=== PATIENT | male | born 1980 | race Caucasian/White ===

== ENCOUNTER 2019-04-10 14:12 | Observation (INO) ==
[2019-04-10] MEDS ORDERED: SODIUM CHLORIDE 0.9% 1000ML 1,000 ML IV SCH (14:30)
[2019-04-10] MEDS ORDERED: MoRPHine SULFATE 10 MG/ML CARP/VIAL IV STA (14:47)
[2019-04-10] MEDS ORDERED: ONDANSETRON INJ 2 MG/ML 2 ML VIAL IV STA (14:47)
[2019-04-10 14:53] LABS: Eosinophils # (auto) 0.06 K/uL (0-0.5); Eosinophils % (auto) 0.9 %; Hematocrit (blood only) 45.4 % (42-52); Hemoglobin 15.5 g/dL (14.0-18.0); Immature Granulocytes # (auto) 0.02 K/uL (0.00-0.02); Immature Granulocytes % (auto) 0.3 %; Lymphocytes # (auto) 1.27 K/uL (1.2-3.4); Lymphocytes % (auto) 19.8 %; Mean Corpuscular Hgb Conc 34.1 g/dL (32-36); Mean Corpuscular Volume 86.3 fL (80-100); Mean Platelet Volume 10.7 fL (7.4-10.4); Monocytes # (auto) 0.63 K/uL (0.11-0.59); Monocytes % (auto) 9.8 %; Neutrophils # (auto) 4.45 K/uL (1.4-6.5); Neutrophils % (auto) 69.2 %; Platelet Count 250 K/uL (130-400); RDW Coefficient of Variation 12.9 % (11.5-14.5); RDW Standard Deviation 40.9 fL (36.4-46.3); Red Blood Count 5.26 M/uL (4.7-6.1); White Blood Count 6.43 K/uL (4.8-10.8)
--- NOTE | 2019-04-10 15:00 | Emergency Department Note ---
Entered by Peyton Sarabia acting as a scribe for History of Present Illness General Chief complaint: Abdominal Pain Stated complaint: RIGHT ABDOMINAL PAIN Time Seen by Provider: 04/10/19 14:22 Source: patient Limitations: no limitations History of Present Illness Provider complaint: Abdominal Pain Onset (ago): day(s) 1 Location: abdomen Maximum Pain Intensity: 3 Associated symptoms: + denies other symptoms (-congestion, -blood in urine); no cough, no fever/chills and no nausea/vomiting Treatments prior to arrival: other (+ 5mg of Cinapro) The patient is a 38 year old male who presents to the Emergency Room with complaints of abdominal pain that began 1 night prior to arrival. The patient st ates that he had left-sided abdominal pain and nausea the night prior to arrival but states that it went away. The patient states that he woke up this morning with the same left-sided abdominal pain so the patient states that he called his PCP. The patient states that his PCP ordered a CT of the abdomen and states that it showed possible appendicitis. The patient states that the last time he ate w as the night prior to arrival at 1800. The patient denies any fevers, chills, cough, congestion, vomiting, nausea, or blood in his urine. The patient states that his last bowel movement was this morning prior to arrival and states that it was a normal bowel movement. The patient states that he only takes 5mg of Cinapro. Home Medications Home Medications Medication Instructions Recorded Confirmed Type lisinopril 5 mg PO QAM 04/10/19 04/10/19 History multivitamin 1 tab PO QAM 04/10/19 04/10/19 History ranitidine HCl 150 mg PO HS 04/10/19 04/10/19 History Allergies Allergy/AdvReac Type Severity Reaction Status Date / Time No Known Allergies Allergy Verified 04/10/19 15:07 Past Med/Surg History Medical History GERD (gastroesophageal reflux disease) HTN (hypertension) with goal to be determined No significant active problems No significant family history No significant medical problems No significant past medical history No significant past surgical history Surgical History H/O hernia repair reports h/o "double hernia surgery" as infant Social History Preferred Language: Upper Sorbian Communication Ability: Effective Beliefs That Will Affect Care: Oriental Orthodox Oriental Orthodox Beliefs: Buddhist Current Living Situation: Alone Feels Safe at Home: Yes Smoking Status: Never smoker Hx Alcohol Use: Yes Alcohol type: beer and hard liquor Hx Substance Use: No Review of Systems See HPI for pertinent positives & negatives. and A total of 10 systems reviewed and were otherwise negative Physical Exam Vital Signs Vital Signs - 24 hr 04/10/19 14:16 04/10/19 14:57 04/10/19 14:58 Temperature 37.3 C Temperature Source Oral Sepsis Recent Fever Within 48 Hours No Sepsis New/Unexplained Change in Mental Status No Sepsis Action Taken by Nursing No Action Required Pulse Rate 109 H Pulse Rate [Finger] 84 Pulse Rhythm Regular Pulse Strength Normal Respiratory Rate 20 20 Respiratory Effort / Characteristics Non-Labored Spontaneous Respiratory Depth Normal Respiratory Pattern Regular Blood Pressure 191/106 H Blood Pressure [Left Arm] 193/118 H Blood Pressure Mean 134 Blood Pressure Mean [Left Arm] 143 Blood Pressure Position Sitting Pulse Oximetry 99 98 98 Oxygen Delivery Method Room Air Room Air Room Air GENERAL: Awake, alert, well appearing, no distress. HENT: Normocephalic, atraumatic. TM's normal. Oropharynx with dry mucous membranes and otherwise unremarkable. EYES: PERRL. EOMI. Normal conjunctiva. Sclera non-icteric. NECK: Supple. No nuchal rigidity. FROM. No JVD or bruit. RESPIRATORY: CTAB CARDIAC: RRR. No murmur. ABDOMEN: Soft, non distended. Tenderness to palpation at McBurney's point. Mild involuntary guarding/withdrawal. No masses. RECTAL: Deferred. MUSCULOSKELETAL: Unremarkable. No edema. No discoloration. Gross motor strength symmetric. NEURO: Normal sensorium. No sensory or motor deficits noted. SKIN: No rash or jaundice noted. LYMPH: No adenopathy. Course 1424: The patient was evaluated in room A2, and a complete history and physical examination were performed. 1445: I discussed the patient's case with Dr. Miranda- [facility] General Surgeon who states that he will be down to evaluate the patient at bedside. 1500: I checked on the patient. The patient was updated on the treatment plan. 1545: I discussed the patient's case with Dr. Arzate [facility] General Surgeon who states that he will directly admit the patient. Consultations Consultation #1: Dr. Arzate [facility] General Surgeon Time: 14:45 Consultation #2: Dr. Arzate [facility] General Surgeon Time: 15:45 Administered Medications Lactated Ringer's (Lr) 1,000 mls @ 100 mls/hr IV .Q10H DENNIS Stop: 05/10/19 16:26 Last Infusion: 04/10/19 18:09 Dose: 100 mls/hr Documented by: [id number] Infusion: 04/10/19 17:33 Dose: 0 mls/hr Documented by: [id number] Admin: 04/10/19 17:12 Dose: 100 mls/hr Documented by: [id number] Discontinued Medications Sodium Chloride (Nss 1000ml) 1,000 mls @ 999 mls/hr IV .Q1H1M DENNIS Stop: 04/10/19 15:30 Last Infusion: 04/10/19 16:03 Dose: 0 mls/hr Documented by: [id number] Admin: 04/10/19 15:01 Dose: 999 mls/hr Documented by: [id number] Cefoxitin Sodium 2,000 mg/ (Dextrose) 60 mls @ 100 mls/hr IV Q6H DENNIS Stop: 04/12/19 16:44 Last Infusion: 04/10/19 18:09 Dose: 0 mls/hr Documented by: [id number] Admin: 04/10/19 17:33 Dose: 100 mls/hr Documented by: [id number] Morphine Sulfate (Morphine Sulfate) 8 mg IV NOW STA Stop: 04/10/19 14:48 Last Admin: 04/10/19 16:03 Dose: Not Given Documented by: [id number] Ondansetron HCl (Zofran) 4 mg IV NOW STA Stop: 04/10/19 14:48 Last Admin: 04/10/19 16:03 Dose: Not Given Documented by: [id number] Medical Decision Making Differential Diagnosis Differential diagnosis: Etiologies such as biliary colic, cholecystitis, hepatitis, pancreatitis, cardiac disease, pancreatitis, gastritis, peptic ulcer disease, appendicitis, cystitis, diverticulitis, mesenteric ischemia, inflammatory bowel disease, ileus, bowel obstruction, testicular torsion, aortic pathology, shingles, as well as others were considered. Medical Records Attestation: I reviewed the patient's medical records. Home Medications Current Medication List: was personally reviewed by me Laboratory Data Attestation: I reviewed the patient's lab results. Result diagrams: 04/10/19 14:41 04/10/19 14:41 Lab Results 04/10/19 04/10/19 Range/Units 14:41 14:41 WBC 6.43 (4.8-10.8) K/uL RBC 5.26 (4.7-6.1) M/uL Hgb 15.5 (14.0-18.0) g/dL Hct 45.4 (42-52) % MCV 86.3 (80-100) fL MCH 29.5 (25-34) pg MCHC 34.1 (32-36) g/dL RDW Std Deviation 40.9 (36.4-46.3) fL RDW Coeff of Beto 12.9 (11.5-14.5) % Plt Count 250 (130-400) K/uL MPV 10.7 H (7.4-10.4) fL Immature Gran % (Auto) 0.3 % Neut % (Auto) 69.2 % Lymph % (Auto) 19.8 % [place] % (Auto) 9.8 % Eos % (Auto) 0.9 % Baso % (Auto) 0.0 % Immature Gran # (Auto) 0.02 (0.00-0.02) K/uL Neut # (Auto) 4.45 (1.4-6.5) K/uL Lymph # (Auto) 1.27 (1.2-3.4) K/uL [place] # (Auto) 0.63 H (0.11-0.59) K/uL Eos # (Auto) 0.06 (0-0.5) K/uL Baso # (Auto) 0.00 (0-0.2) K/uL Sodium 135 L (136-145) mmol/L Potassium 4.0 (3.5-5.1) mmol/L Chloride 102 (98-107) mmol/L Carbon Dioxide 27 (21-32) mmol/L Anion Gap 6.0 (3-11) BUN 13 (7-18) mg/dl Creatinine 0.98 (0.6-1.4) mg/dl Est Cr Clr Drug Dosing 132.7 ml/min Est GFR ( Amer) 112.1 Est GFR (Non-Af Amer) 96.7 BUN/Creatinine Ratio 13.6 (10-20) Glucose 96 (70-99) mg/dl Calcium 9.1 (8.5-10.1) mg/dl Total Bilirubin 0.6 (0.2-1) mg/dl AST 28 (15-37) U/L ALT 58 (12-78) U/L Alkaline Phosphatase 109 (45-117) U/L Total Protein 8.3 H (6.4-8.2) gm/dl Albumin 3.9 (3.4-5.0) gm/dl Globulin 4.4 H (2.5-4.0) gm/dl Albumin/Globulin Ratio 0.9 (0.9-2) Lipase 96 (73-393) U/L Specimen Hemolysis Blood Pressure Blood Pressure Findings: Elevated blood pressure Blood Pressure Disposition: elevated BP felt to be situational MDM Narrative The patient is a pleasant 38-year-old gentleman with a past medical history of hypertension on lisinopril presents emergency department for evaluation after having outpatient CT scan showing evidence of appendicitis with 8 mm appendix though minimal periappendiceal inflammation per hpi. She is outpatient CT was p erformed in setting of developing lower abdominal pain that developed into localized right lower quadrant pain with associated nausea. On arrival patient is in no acute distress, afebrile with heart rate in the 100s and elevated blood pressure 190/100. Patient appears clinically dry. On exam patient has point tenderness over McBurney's point with involuntary guarding/withdrawal. Labs ordered and pending. Case was discussed with Waqas Colbert, general surgery PA-C occupational therapy assist with Dr. Miranda who will evaluate the patient at the bedside. Patient ordered for IV morphine for possible pain component to patient's blood pressure. WBC, H/H, platelets wnl. Chemistry without acidosis. LFTs and electrolytes unremarkable. UA negative. Evaluated by general surgery and admitted for observation. Antibiotics deferred to surgery admitting team. Impression & Plan Acute appendicitis Discharge Plan Visit Data *Final* Discharge Date/Time: 04/10/19 16:08 Chief Complaint: Abdominal Pain Stated Complaint: RIGHT ABDOMINAL PAIN ED Provider: Morgan Valencia Discharge Problem: Acute appendicitis Patient Disposition: Admitted As Inpatient Discharge Instructions Interventions: ED Discharge Assessment Last Done: 04/10/19 16:08 Discharge Problem: Acute appendicitis Qualifiers: Acute appendicitis type: unspecified acute appendicitis type Qualified Code(s): K35.80 - Unspecified acute appendicitis The scribe's documentation has been prepared under my direction and personally reviewed by me in its entirety. I confirm that the note above accurately reflects all work, treatment, procedures, and medical decision making performed by me.
[2019-04-10 15:34] LABS: Albumin Globulin Ratio 0.9 (0.9-2); Albumin Level 3.9 gm/dl (3.4-5.0); BUN Creatinine Ratio 13.6 (10-20); Bilirubin,Total 0.6 mg/dl (0.2-1); Calcium 9.1 mg/dl (8.5-10.1); Creatinine Clr Calc Pharmacy 132.7 ml/min; Est GFR (African American) 112.1; Est GFR (Non-African American) 96.7; Globulin 4.4 gm/dl (2.5-4.0); Total Protein 8.3 gm/dl (6.4-8.2)
--- NOTE | 2019-04-10 15:38 | History & Physical Report ---
Date of Service April 10, 2019 Assessment & Plan (1) Abdominal pain: CT was reviewed with radiology, mildly dilated mid-appendix, no surrounding inflammatory changes. Labs are normal, exam shows mild tenderness. Will observe overnight to r/o appendicitis. Will keep on IV abx, NPO after midnight. Repeat AM labs. Will ask hospitalist to assist with elevated BP, 193/118. History of Present Illness Primary Care Provider: Laura Osvaldo Meade 38 y/o male with right sided abdominal pain that began last night after dinner associated with some nausea. No fevers or chills. No history of biliary symptoms, does have night time reflux. No diarrhea. Pain was persistent overnight, saw PCP this morning and had outpatient CT scan which was equivocal for appendicitis. Pain is currently 4/10. Allergies Allergy/AdvReac Type Severity Reaction Status Date / Time No Known Allergies Allergy Verified 04/10/19 15:07 Home Medications Home Medications Medication Instructions Recorded Confirmed Type lisinopril 5 mg PO QAM 04/10/19 04/10/19 History multivitamin 1 tab PO QAM 04/10/19 04/10/19 History ranitidine HCl 150 mg PO HS 04/10/19 04/10/19 History Past Med/Surg History Medical History GERD (gastroesophageal reflux disease) HTN (hypertension) with goal to be determined No significant active problems No significant family history No significant medical problems No significant past medical history No significant past surgical history Surgical History H/O hernia repair reports h/o "double hernia surgery" as Social History Preferred Language: Cymro Communication Ability: Effective Life Insurance Actuary Required: No Beliefs That Will Affect Care: Zoroastrian Zoroastrian Beliefs: Jain Current Living Situation: Alone Other Information That Helps Us Care for You: No Feels Safe at Home: Yes Safety Concerns: Feels Safe At This Time Smoking Status: Never smoker Do You Dip or Chew Tobacco: No Hx Alcohol Use: Yes Alcohol type: beer and hard liquor Hx Substance Use: No Review of Systems Constitutional: no fever and no chills Gastrointestinal: + abdominal pain and + nausea; no change in bowel habits Physical Exam Constitutional: WD/WN, vitals as above Respiratory: normal respiratory effort, lungs clear to auscultation Cardiovascular: RRR, no murmur, no edema Gastrointestinal (Abdomen): Inspection/Auscultation: abdomen not distended Percussion/Palpation: + abdomen tender (mild RLQ); no guarding Skin: no rashes, warm and dry Results & Data Vital Signs (Past 12 Hours) Vital Signs Temp Pulse Pulse Resp BP BP Pulse Ox 04/10/19 14:58 84 20 193/118 H 98 04/10/19 14:57 98 04/10/19 14:16 37.3 C 109 H 20 191/[address] abd pelvis oral and IV con CLINICAL HISTORY: Right lower quadrant abdominal pain COMPARISON STUDY: None. TECHNIQUE: The patient was scanned following administration of dilute oral contrast, and in a dynamic helical fashion during intravenous administration of 125 cc of Optiray 320. A dose lowering technique was utilized adhering to the principles of ALARA. CT DOSE: 1691.63 mGy.cm FINDINGS: Lower chest: The heart is normal in size and configuration, without pericardial effusion. The lung bases and pleural spaces are clear. Liver: There is hepatic steatosis. There is a nonspecific 31 mm hypodense lesion within the medial segment of the left lobe of the liver. This cannot be further characterized. If further evaluation is desired, an MRI would be considered attested twice. The portal vein is patent. Gallbladder: Unremarkable. Spleen: Normal in size and attenuation. Pancreas: Unremarkable. Adrenal glands: Unremarkable. Kidneys: There is symmetric renal cortical enhancement. The kidneys are normal in size without hydronephrosis. Bowel: There are no transition zones indicate bowel obstruction. There is no acute diverticulitis. The appendix is minimally thickened measuring 8 mm. There are however no significant periappendiceal inflammatory changes. Clinical correlation and follow-up will be necessary to exclude an early acute appendicitis. Peritoneum: There is no intraperitoneal free air or abdominal ascites. Vasculature: The abdominal aorta is normal in course and caliber. Adenopathy: None. Pelvic viscera: The bladder, and pelvic viscera are unremarkable. Skeletal structures: No destructive osseous lesions are seen. IMPRESSION: 1. Mildly thickened appendix measuring 8 mm, but no significant periappendiceal inflammatory changes. Clinical correlation and follow-up will be necessary to help exclude an early acute appendicitis 2. Indeterminate 31 mm left lobe hepatic hypodense lesion. If further characterization is desired, an MRI would be considered the test of choice in follow-up Electronically signed by: Guille Archibald M.D. 04/10/2019 1:39 PM
[2019-04-10] MEDS ORDERED: HydrALAZINE HCL 20 MG/ML VIAL IV PRN (15:44)
[2019-04-10] MEDS ORDERED: LORazepam 0.5 MG/1 ML VIAL IV PRN (15:55)
--- NOTE | 2019-04-10 16:04 | Hospitalist Consultation ---
Date of Consultation April 10, 2019 Assessment & Plan (1) Abdominal pain: 38 y/o M Hx HTN, obese - presenting with lower quadrant abdominal pain. Denies N/V, diarrhea or fevers. A CT of the abdomen was equivocal for appendicitis. The pt is admitted by surgery and will proceed to the OR if there is no clinical improvement. While in the ER he was noted to have an elevated blood pressure, topping off at approximately 195/110. He did not associate this with pain but stated that he was very anxious at the time. The pt's SBP during examination by the medical service was 155. 1) HTN - BP near-normal at the time of medical evaluation. He may need a med adjustment. He follows up with his GP every 6 months and stats that his pressure has been well controlled with his current dose of Lisinopril. As he states his BP was elevated due to anxiety, we will provide lorazepam PRN for an elevated pressure. We should trend his pressure while admitted however to determine if he is hypertensive at baseline. 2) Suspicion of appendicitis - management to discretion of surgery. Total time for this consult including review of lab, meds, imaging, records - discussion with pt and surgical service - 34 min Present on Admission?: Yes (2) Hypertension: History of Present Illness Reason for Consultation: high blood pressure Requesting Physician: Roger History of Present Illness 38 y/o M Hx HTN, obese - presenting wit lower quadrant abdominal pain. Denies N/V, diarrhea or fevers. A CT of the abdomen was equivocal for appendicitis. The pt is admitted by surgery and will proceed to the OR if there is no clinical improvement. While in the ER he was noted to have an elevated blood pressure, topping off at approximately 195/110. He did not associate this with pain but stated that he was very anxious at the time. The pt's SBP during examination by the medical service was 155. PMH: HTN, obese Surgical: BL hernia repair as an infant. Social: Does not smoke, drink in moderation. He is a meteorologist. Family: Denies a significant family history Allergies Allergy/AdvReac Type Severity Reaction Status Date / Time No Known Allergies Allergy Verified 04/10/19 15:07 Home Medications Home Medications Medication Instructions Recorded Confirmed Type lisinopril 5 mg PO QAM 04/10/19 04/10/19 History multivitamin 1 tab PO QAM 04/10/19 04/10/19 History ranitidine HCl 150 mg PO HS 04/10/19 04/10/19 History Patient History Medical History GERD (gastroesophageal reflux disease) HTN (hypertension) with goal to be determined No significant active problems No significant family history No significant medical problems No significant past medical history No significant past surgical history Surgical History H/O hernia repair reports h/o "double hernia surgery" as Social History Preferred Language: Khmer Communication Ability: Effective 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 Beliefs That Will Affect Care: Adventism Adventism Beliefs: Congregational Current Living Situation: Alone Other Information That Helps Us Care for You: No Feels Safe at Home: Yes Safety Concerns: Feels Safe At This Time Smoking Status: Never smoker Do You Dip or Chew Tobacco: No Hx Alcohol Use: Yes Alcohol type: beer and hard liquor Hx Substance Use: No Review of Systems Review of Systems: Gen: Denies fevers, night sweats, rigors, fatigue, malaise, weight loss/gain ENT: Denies congestion, throat pain, hearing loss Eyes: Denies acute visual changes CV: Denies CP, palpitations Pulmonary: Denies SOB, cough, wheezing GI: Abdominal pain in lower quadrants, L>R Neuro: Denies acute or unilateral weakness, acute gait impairment, headache or acute visual changes Musculoskeletal: Denies joint pain, inflammation Endocrine: Denies polydipsia, polyuria Skin: Denies acute rashes or ulcers Physical Exam Physical Exam: General: AAO x 3, no distress ENT: No erythema or exudates, no thrush Eyes: DEMETRA, EOMI Head and neck: Normocephalic, atraumatic, No JVD, neck is supple. Chest/heart: Nontender, S1,2, RRR, no murmurs, no gallops Lungs: CTAB, no wheezing or crackles Abdomen: Tenderness without guarding in the lower abdomen Neuro: AAO x 3, speech is clear, no unilateral weakness or loss of sensation, coordination intact Musculoskeletal: No joint inflammation, muscle tenderness, FROM Skin: No acute rashes or ulcers Extremities: No clubbing, cyanosis, edema Results & Data Vital Signs (Past 12 Hours) Vital Signs Temp Pulse Pulse Resp BP BP Pulse Ox 04/10/19 15:55 95 H 18 151/80 H 100 04/10/19 14:58 84 20 193/118 H 98 04/10/19 14:57 98 04/10/19 14:16 99.1 F 109 H 20 191/106 H 99 PG Care Time/CCT Total # of Minutes Spent Total Time Spent with Patient: Total time spent is greater than 50% in coordination of care (as documented) at patient's floor/unit and/or counseling patient:
[2019-04-10] MEDS ORDERED: ONDANSETRON INJ 2 MG/ML 2 ML VIAL IV PRN (16:27)
[2019-04-10] MEDS ORDERED: KETOROLAC 30 MG/ML VIAL IV PRN (16:27)
[2019-04-10] MEDS ORDERED: MoRPHine SULFATE 4 MG/ML 1 ML CARP\\VIAL IV PRN (16:27)
[2019-04-10] MEDS ORDERED: ACETAMINOPHEN 325 MG TAB PO PRN (16:27)
[2019-04-10] MEDS ORDERED: MoRPHine SULFATE 10 MG/ML CARP/VIAL IV PRN (16:27)
[2019-04-10] MEDS ORDERED: cefOXitin 2,000 MG in DEXTROSE 5% 50 ML IV SCH (16:45)
[2019-04-10] MEDS: LACTATED RINGER'S 1,000 ML IV SCH (17:12)
[2019-04-10 18:25] LABS: Appearance Urine Clear (Clear); Bilirubin Urine Negative (Negative); Blood Urine Negative (Negative); Color Urine Yellow; Glucose Urine UA Negative (Negative); Ketones Urine Trace (Negative); Leukocyte Esterase Urine Negative (Negative); Nitrite Urine Negative (Negative); Protein Urine Negative (Negative); Specific Gravity Urine 1.028 (1.000-1.030); Urobilinogen Urine Negative (Negative); pH Urine 6.5 (4.5-7.5)
[2019-04-11] MEDS: LACTATED RINGER'S 1,000 ML IV SCH (03:17)
[2019-04-11 07:23] LABS: Basophils # (auto) 0.01 K/uL (0-0.2); Basophils % (auto) 0.2 %; Eosinophils # (auto) 0.18 K/uL (0-0.5); Eosinophils % (auto) 3.1 %; Hemoglobin 14.3 g/dL (14.0-18.0); Immature Granulocytes # (auto) 0.02 K/uL (0.00-0.02); Immature Granulocytes % (auto) 0.3 %; Lymphocytes # (auto) 1.33 K/uL (1.2-3.4); Lymphocytes % (auto) 22.7 %; Mean Corpuscular Volume 86.8 fL (80-100); Mean Platelet Volume 10.3 fL (7.4-10.4); Monocytes # (auto) 0.53 K/uL (0.11-0.59); Neutrophils % (auto) 64.7 %; Platelet Count 234 K/uL (130-400); RDW Coefficient of Variation 12.9 % (11.5-14.5); RDW Standard Deviation 41.4 fL (36.4-46.3); Red Blood Count 4.84 M/uL (4.7-6.1); White Blood Count 5.87 K/uL (4.8-10.8)
[2019-04-11 07:52] LABS: BUN Creatinine Ratio 11.4 (10-20); Calcium 9.1 mg/dl (8.5-10.1); Creatinine Clr Calc Pharmacy 147.8 ml/min; Est GFR (African American) 125.4; Est GFR (Non-African American) 108.2; Potassium 3.8 mmol/L (3.5-5.1)
--- NOTE | 2019-04-11 08:12 | Surgery Progress Note ---
Date of Service April 11, 2019 Assessment & Plan (1) Abdominal pain: pain resolved WBC normal BP stable seen with Dr. Ruth hodges for d/c Subjective RLQ pain resolved, bowels moving Physical Exam Gastrointestinal (Abdomen): Percussion/Palpation: abdomen soft; abdomen nontender Results & Data Vital Signs (Past 12 Hours) Vital Signs Temp Pulse Resp BP Pulse Ox 04/11/19 07:32 37.0 C 83 16 119/75 98 04/10/19 22:58 36.9 C 83 14 111/69 99 04/10/19 21:02 77 137/76
[2019-04-11] MEDS ORDERED: LISINOPRIL 5 MG TAB PO SCH (09:00)
[2019-04-11] MEDS ORDERED: MULTIVITAMIN TAB PO SCH (09:00)
--- NOTE | 2019-04-11 09:47 | Discharge Summary ---
Date of Service April 11, 2019 Admission HPI Per Admitting Provider 38 y/o male with right sided abdominal pain that began last night after dinner associated with some nausea. No fevers or chills. No history of biliary symptoms, does have night time reflux. No diarrhea. Pain was persistent overnight, saw PCP this morning and had outpatient CT scan which was equivocal for appendicitis. Pain is currently 4/10. Principal Diagnosis Abdominal pain Discharge Exam Gastrointestinal (Abdomen) Inspection/Auscultation: abdomen not distended Percussion/Palpation: abdomen soft; abdomen nontender Discharge Data Allergies Allergy/AdvReac Type Severity Reaction Status Date / Time No Known Allergies Allergy Verified 04/10/19 15:07 Consultations 04/10/19 14:32 Consult General Surgery Stat 04/10/19 15:45 ED Decision to Admit Stat 04/10/19 16:27 Consult Hospitalist Routine Hospital Course (1) Abdominal pain: 38 y/o male presented to the ED with 1 day history of RLQ pain. CT was equivocal for appendicitis, his white blood cell count was normal. He was admitted to the surgical service overnight to rule-out appendicitis. He was not given antibiotics. By the next morning his pain and tenderness had resolved. His white blood cell count remained normal. He was able to tolerate a regular diet. He was stable for discharge. We had the hospitalist evaluate him on admission for BP above 190/100. This was attributed to anxiety. His blood pressure in the morning was 119/75. He was continued on his lisinopril 5mg. Total Time Total Time Spent Total Time Spent (In Minutes): 15 Discharge Plan Discharge Items Patient Disposition: Home - Self-Care Reason For Visit: ABDOMINAL PAIN Discharge Diagnosis: abdominal pain Discharge Goals: Decrease discomfort Activity: Resume your previous activity Non-emergency contact: Surgeon Call non-emergency contact if: your pain is worsening, you have a fever and your temperature is above 101.5 Follow-up/Referrals: Sridhar Miranda MD [Surgeon] - (Call if you have any concerns) Laura Meade [Primary Care Provider] - Diet: Regular Addtl Provider Instructions: Prescriptions: Continued multivitamin Tablet 1 tab PO QAM RF: 0 ranitidine HCl 150 mg Tablet 150 mg PO HS RF: 0 lisinopril 5 mg tablet 5 mg PO QAM RF: 0 Stand-Alone Forms: Call Back Authorization, [facility]/Other Patient Handouts: Appendicitis Discharge Orders: Discharge Order (Routine); Ordered 04/11/19 Ordered By: Juan José Colbert Jr Admission Data Admit Date/Time: 04/10/19 15:33 Attending Provider: Sridhar Miranda Admit Provider: Sridhar Miranda Primary Care Provider: Laura Meade Other Providers: Sridhar Miranda ; Alvin Menjivra Service: Surgical Services Other Interventions: Discharge Summary Assessment (RN) Last Done: 04/11/19 09:24 DC Date/Time DO NOT enter until pt leaves facility: 04/11/19 09:32
== END 2019-04-11 09:32 | disposition home or self-care (01) ==
LOC: ED 14:12 → 3W 14:12